=== PATIENT | male | born 1980 | race African-American/Black ===

== ENCOUNTER 2017-07-03 23:18 | Emergency (ER) | payer SELFPAY ==
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
== END 2017-07-04 03:06 | disposition home or self-care (01) ==
LOC: MADERS 23:18
DX: S06.0X1A Concussion with loss of consciousness of 30 minutes or less, initial encounter (principal); S16.1XXA Strain of muscle, fascia and tendon at neck level, initial encounter; V49.9XXA Car occupant (driver) (passenger) injured in unspecified traffic accident, initial encounter
CPT/HCPCS: 70450; 71010; 72125; G0390